=== PATIENT | female | born 1945 | race Caucasian/White ===

== ENCOUNTER → 2016-12-27 | Outpatient (CLI) | payer OTHER, MEDICARE ==
[~2016-12-27] MED LIST: COUMADIN5 MG PO; DIGOXIN0.125 MG PO; FUROSEMIDE40 MG PO; K-TABS10 MEQ PO; LEVO-T125 MCG PO; LISINOPRIL10 MG PO; LOVASTATIN20 MG PO; METOPROLOL TART25 MG PO; NORCO1 TA2 PO; SPIRONOLACTONE25 MG PO
== END ==
LOC: LAB SRH 13:23
DX: E03.9 Hypothyroidism, unspecified (principal)
CPT/HCPCS: 90074; 93140

== ENCOUNTER 2017-03-26 12:47 | Emergency (ER) | payer OTHER, MEDICARE ==
--- NOTE | 2017-03-26 14:27 | DIAGNOSTIC IMAGING REPORT ---
PROCEDURE: XR CHEST 1 VIEW INDICATION: SHORTNESS OF BREATH TECHNIQUE: Portable AP view 02:16 p.m. COMPARISON: Chest 11/15/2016 FINDINGS: New pacemaker in position. No other change in cardiomegaly. Lungs clear. IMPRESSION: 1. No change in cardiomegaly. Lungs clear.
--- NOTE | 2017-03-26 16:00 | ED NURSING NOTES ---
Clinical Report - Nurses [facility] [address] [place] [address] 03/26/2017 12:51 Patient: DELMIS PATIÑO TRIAGE Triage time 13:Mar 26 2017. Acuity: LEVEL 2. Chief Complaint: (pt has [employer] / [facility] in left upper chest, pt of dr caputo- has appointment with dr mejia the 03 of april, while driving in to town pt c/o "getting very hot in the back of my neck and sob" pt denies cp. pt seen at [facility] March 18 for the same). Alert. No acute distress. SEPSIS SCREEN: Sepsis Screen. Negative (no infection suspected/documented). --13:16 Leann Srinivasan R.N. 13:09 03/26/17. BP: 138/83. HR: 72. RR: 19. O2 saturation: 99%. Temp: 98.4 F. Pain level now: 0/10. --13:16 Leann Srinivasan R.N. Weight: 62.1 kg. Height/Length: 60 inches. BMI: 26.7. --13:14 Leann Srinivasan R.N. Medications Coumadin Oral 7.5 mg, last dose 1230 (Mon, Wed, Fri and 5 mg all the other days). Hydrocodone-Acetaminophen Oral (Tablet 5-325 mg) 1 tablet, q 6 hours as needed. Levothyroxine Sodium Oral. Lisinopril Oral 10 mg, daily. Lovastatin Oral 20 mg, at bedtime. Metoprolol Succinate ER Oral. Spironolactone Oral. --13:11 Leann Srinivasan R.N. Allergies Codeine. Definite Moderate(SOB, swelling) Penicillins. Possible (Childhood reaction) --13:11 Leann Srinivasan R.N. History Arrived by private vehicle. Historian: patient. The patient has had difficulty breathing. 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 PAST MEDICAL HX: The patient is post-menopausal. SOCIAL HX: Smoker- current status unknown. Alcohol use; consumes beer occasionally. No drug use. No infectious disease exposure. ABUSE ASSESSMENT: No report of abuse. SELF HARM ASSESSMENT: A self harm assessment was performed. The patient answered "no" to the question "Have you recently felt down, depressed, or hopeless?", "Have you noticed less interest or pleasure in doing things?", "Do you have thoughts of harming or killing yourself?", "Are you here because you tried to hurt yourself?", "Have you ever tried to hurt yourself before today?", "Have you recently had thoughts about harming or killing others?" and "Do you have any dangerous items in your possession?". FALL RISK ASSESSMENT: Fall risk assessment completed. No fall risk identified. NUTRITIONAL RISK ASSESSMENT: The nutritional risk assessment revealed no deficiencies. LEARNING NEEDS ASSESSMENT: The learning needs assessment revealed no barriers. FUNCTIONAL ASSESSMENT: Functional assessment performed: uses cane; wears glasses. SKIN INTEGRITY ASSESSMENT: Skin integrity risk assessment completed. No skin integrity risk identified. --13:16 Leann Srinivasan R.Ankita. PROBLEMS: Cardiomyopathy. Hypotension. Dizziness. Palpitations. Torticollis. Neck Pain. COPD - Chronic Obstructive Pulmonary Disease. Dyspnea. Heart Disease. Dental Pain. Acute Pain. Dental Caries. Hypothyroidism. Hypercholesterolemia. CVA - Cerebrovascular Accident. Hypertension. Congestive Heart Failure. --13:12 Leann Srinivasan R.N. ADDITIONAL SURGERIES: Adenoidectomy. Appendectomy. Tonsillectomy. --13:12 Leann Srinivasan RStewartN. Interventions ID and allergy band on patient. --13:16 Leann Srinivasan R.N. PHYSICAL ASSESSMENT GENERAL / NEURO / PSYCH: Alert. Oriented X 4. Appears in no acute distress. HEENT: Mucous membranes are pink. RESPIRATORY: Respirations not labored. Inspiratory wheezes present (diffuse). CVS: Cardiac rhythm: (paced). Capillary refill less than 2 seconds. GI / : Abdomen soft and nontender. EXTREMITIES: 1+ edema of the right lower extremity involving the foot and ankle; 2+ edema of the left lower extremity involving the foot and ankle. SKIN: Skin is warm and dry. Normal skin turgor. --13:19 Leann Srinivasan R.N. NURSING PROGRESS NOTES Cardiac rhythm: paced rhythm. kitchen and bath designer, pulse oximeter and NIBP monitor placed on patient; synchro assembler- Lead II and V5; monitor alarms on. Patient gowned. Reassurance given. Patient identifiers checked. Call light placed in reach. Side rails up x 1. Bed placed in lowest position. Brakes of bed on. Patient ready for evaluation- chart flagged. --13:19 Leann Srinivasan R.N. EKG time: (:Mar 26 2017). EKG was performed by a tech and shown to the ED physician. --13:19 Leann Srinivasan R.N. 13:15 03/26/2017 Site #1 started via IV in the right antecubital space with an 20g angiocath; one attempt. Blood drawn: rainbow set. Labeled in the presence of the patient and sent to the lab. Saline lock flushed with 10 mL saline. --13:20 Leann Srinivasan R.N. Portable chest x-ray performed. Reassurance given. --14:17 Leann Srinivasan R.N. 14:17 03/26/17. BP: 117/74 taken on the left arm, while lying. HR: 61. RR: 18. O2 saturation: 98% on room air. Pain level now: 0/10. --14:19 Leann Srinivasan R.N. 14:48. ( pt had 12 beat run of cinthia- CONCHITA gan at monitor caught it and showed to MD. pt reports "It's the same feeling I have been having for some time" pt describes as "I get really warm like a hot flash and then it feels like the bottom is falling out" pt also reports sob during the episode. code cart placed outside of room). --15:19 Leann Srinivasan R.N. 15:20 03/26/17. BP: 125/87. HR: 71. Pain level now: 0/10. --15:21 Leann Srinivasan R.N. Call light placed in reach. --15:22 Page-Kuchan, Karyol, R.N. The patient is calm. RESPIRATORY: No respiratory distress. --15:22 Leann Srinivasan R.N. ( pt cont to have runs of vtach, pt moved to room 1 to be visible from nurses station. O2 placed on pt, pt cont to deny pain, is in a paced rhythm with no c/o other than when she has the runs of vtach, then pt will co "flushed" with MD patricia aware). --16:01 Leann Srinivasan R.N. kitchen and bath designer, pulse oximeter and NIBP monitor placed on patient; synchro assembler- Lead II and V5; monitor alarms on. Reassurance given. Patient identifiers checked. Call light placed in reach. Side rails up x 2. Bed placed in lowest position. Brakes of bed on. --16:02 Leann Srinivasan R.N. Cardiac rhythm: (paced with runs of vtach). --16:09 Leann Srinivasan R.N. Patient waiting for transportation and admit bed and (pt to be admitted to [facility], waiting bed assignment call back). ( pt in poc, cont to deny pain "I just get so sob when it happens" pt remains in paced rhythm with runs of vtach. Code cart by bed, pt contacted her sister via phone to notify of her transfer.). --16:57 Leann Srinivasan R.N. 16:57 03/26/17. BP: 124/60. HR: 68. RR: 19. O2 saturation: 99% on nasal cannula at 2 liters/minute. Pain level now: 0/10. --16:58 Leann Srinivasan R.N. DISPOSITION / DISCHARGE Report was given to a nurse via a phone call. Report included patient's care, treatment, medications, reviewed medication reconcilliation, and condition (including any recent changes or anticipated changes). All questions were answered. Report was acknowledged. (report called to feliz Wei RN). ( eta for NWA [id number]). --17:22 Leann Srinivasan R.N. Cardiac rhythm: (paced). Departure time: 1740. The patient was discharged by the physician. She was discharged (feliz Cervantes). She left the Emergency Department via ambulance and on a stretcher. Transferred to [facility]. Summary of care provided to transport team and transfer facility (17:41 Mar 26 2017). Transported via ambulance by nurse, EMS and transport team with monitor, IV, O2 and emergency medications. Report was given to a nurse in person. Report included patient's care, treatment, medications, reviewed medication reconcilliation, and condition (including any recent changes or anticipated changes). All questions were answered. Report was acknowledged and care was transferred. (Mario ARANGO). Patient's personal items include, bagged/tagged, pts sister Jud coming to get pts car. --17:42 Leann Srinivasan R.N. 17:39 03/26/17. BP: 113/85. HR: 65. RR: 18. O2 saturation: 98%. Temp: 98.2 F. Pain level now: 0/10. --17:42 Leann Srinivasan R.N. Locked/Released at 03/26/2017 17:53 by Leann Srinivasan R.N.
--- NOTE | 2017-03-26 16:00 | ED ORDER SUMMARY ---
..... Patient: DELMIS PATIÑO OrderSheet [facility] VisitID: [id number] [place] [address] 71y, F Registration Date/Time: 03/26/2017 ORDER SHEET Weight: 62.1 kg Allergies: Codeine, Penicillins GENERAL ORDERS: Chest 1V Urgent (14:04 03/26/2017 Fernie Haddad) (Ack 14:06 Luicana) (14:13 KPage-Kuclausn R.N.) UA-Culture if indicated Urgent (14:05 03/26/2017 Fernie Haddad) (Ack 14:06 Luciana) (17:52 KPage-Angelan R.N.) Cardiac Panel Stat (14:05 03/26/2017 Fernie Haddad) (Ack 14:06 Luciana) (14:13 KPage-Kuclausn R.N.) BNP Urgent (14:05 03/26/2017 Fernie Haddad) (Ack 14:06 Luciana) (14:13 KPage-Kuchan R.N.) D-Dimer Urgent (14:05 03/26/2017 Fernie Haddad) (Ack 14:06 Luciana) (14:13 KPage-Kuchan R.N.) PT with INR Urgent (16:01 03/26/2017 Fernie Haddad) (Ack 16:15 Luciana) (17:52 KPage-Kuchan R.N.) PTT Urgent (16:01 03/26/2017 Fernie Haddad) (Ack 16:15 Luciana) (17:52 KPage-Kuclausn R.N.) TSH Urgent (16:09 03/26/2017 Fernie Haddad) (Ack 16:15 Luciana) (17:52 KPage-Kuchan R.N.) MEDICATION ORDERS: IV FLUIDS: IV Saline Lock (14:05 03/26/2017 Fernie Haddad) (14:14 KPage-Kuchan R.N.) ORDER SHEET NOTES: [Electronically signed by Leann Srinivasan R.N. (17:53 03/26/2017)] [Electronically signed by Alli Mccormick Dr. (17:57 03/26/2017)] [Electronically locked/signed by Leann Srinivasan R.N. (17:53 03/26/2017)]
--- NOTE | 2017-03-26 16:00 | ED CLINICAL REPORT ---
Clinical Report - Physicians/Mid Levels [facility] [address] [place] [address] 03/26/2017 12:51 Patient: DELMIS PATIÑO Time Seen: 13:26; initial patient contact. Arrived- By private vehicle. Historian- patient. HISTORY OF PRESENT ILLNESS Chief Complaint: DIZZINESS and WEAKNESS. Described as feeling light-headed, faint and weak all over. Severity described as moderate at its maximum. When seen in the E.D., severity described as moderate. Modifying factors- relieved by nothing. Not worsened by anything. This started about 2 days ago and is still present and worsening. It was abrupt in onset and has been intermittent. The patient has had nausea. No vomiting. Similar symptoms previously: Many times. Recent medical care: The patient was seen recently at another facility in the emergency department. ( Complete cardiac W/U 1 week ago at [facility], normal including pacer evaluation. D/C'd.). REVIEW OF SYSTEMS The patient has had difficulty breathing, weakness, and palpitations. No difficulty walking. No fainting episodes, chest pain or diarrhea. All systems otherwise negative, except as recorded above. PAST HISTORY ( Cardiomyopathy. Hypotension. Dizziness. Palpitations. Torticollis. Neck Pain. COPD - Chronic Obstructive Pulmonary Disease. Dyspnea. Heart Disease. Dental Pain. Acute Pain. Dental Caries. Hypothyroidism. Hypercholesterolemia. CVA - Cerebrovascular Accident. Hypertension. Congestive Heart Failure. ADDITIONAL SURGERIES: Adenoidectomy. Appendectomy. Tonsillectomy.). SOCIAL HISTORY Smoker - current status unknown. Occasional alcohol use. No drug use. ADDITIONAL NOTES The nursing notes have been reviewed. PHYSICAL EXAM Vital Signs: 03/26/2017 13:09 BP: 138/83. HR: 72. RR: 19. O2 saturation: 99%. Temp: 98.4 F. Pain level now: 0/10. Have been reviewed as normal. Appearance: Alert. Anxious. ENT: Normal ENT inspection. Neck: Normal inspection. CVS: Normal heart rate and rhythm. Heart sounds normal. Respiratory: No respiratory distress. Breath sounds normal. Abdomen: Soft and nontender. No organomegaly. Skin: Skin warm and dry. Normal skin color. Extremities: Bilateral 2+ non-pitting edema of the lower extremities involving both lower legs. No calf tenderness. Neuro: Alert. Oriented X 3. Mood/affect normal. LABS, X-RAYS, AND EKG EKG: EKG time: (1324). Ventricular paced rhythm. Normal P waves. Normal KRIS. Normal ST and T waves. Prolonged QTc (503). Changes present when compared to prior EKG. (11/15/16 No pacer, NSR 76 w/ LBBB). The study has been interpreted contemporaneously by me. The study has been independently viewed by me. The EKG appears to be a good tracing. Interpretation time: 1324. Chest X-ray: Pacemaker present. (1. No change in cardiomegaly. Lungs clear.). Views: AP. A comparison with prior films reveals that the findings are new (Pacemaker). Laboratory Tests: CBC w Diff: (KYLEE: 03/26/2017 13:16) ( [facility] 03/26/2017 14:12) Final results Test Result Flag Units (Reference) WHITE BLOOD COUNT 7.5 K/uL (4.5-11.5) RED BLOOD COUNT 4.56 M/uL (4.00-5.20) HEMOGLOBIN 14.1 gm/dL (12.0-16.0) HEMATOCRIT 42.9 % (36.0-46.0) MEAN CELL VOLUME 94 fL (80-100) MEAN CORPUSCULAR HGB 31 pg (26-34) MEAN CORPUSCULAR HGB CONC 33 g/dL (31-37) RED CELL DISTRIBUTION WIDTH 13.8 % (11.6-14.8) PLATELET COUNT 181 K/uL (150-400) NEUTROPHIL % 64.0 % (50-75) LYMPH % 28.0 % (25-40) MONO % 7.6 % (3-14) EOSINOPHIL % 0 % (0-4) BASOPHIL % 0.4 % (0-2) PT with INR: (KYLEE: 03/26/2017 13:16) ( [facility] 03/26/2017 16:13) Final results Test Result Flag Units (Reference) INR 2.0 H (0.8-1.2) Low Intensity Therapy: INR 1.5-2.0 PT range 18.5-23.1Mod.Intensity Therapy: INR 2.0-3.0 PT range 23.1-31.5High Intensity Therapy: INR 2.5-3.5 PT range 27.4-35.5High Intensity Therapy 2: INR 3.0-4.0 PT range 31.5-39.3 APTT 38 H SECONDS (24-34) [id number]: (KYLEE: 03/26/2017 13:16) ( [facility] 03/26/2017 14:27) Final results Test Result Flag Units (Reference) D-DIMER QUANTITATIVE < 0.27 L ug/mLFEU (0.27-0.52) The primary value of this quantitative assay relates toits negative predictive value (i.e. exclusion) of pulmonaryembolism/deep vein thrombosis/DIC.Elevated levels of d-dimer may also occur with:, age, cancer, inflammation, liver disease,post-op, infection, hematoma, coronary disease, peripheralarteriopathy, bleeding disorders and thrombolytic treatment.Results should be correlated with other clinical andradiological data.Testing Methodology: Latex Immunoassay TSH: (KYLEE: 03/26/2017 13:16) ( [facility] 03/26/2017 17:24) Final results Test Result Flag Units (Reference) THYROID STIMULATING HORMONE 1.453 uIU/mL (0.30-3.74) BNP: (KYLEE: 03/26/2017 13:16) ( [facility] 03/26/2017 14:44) Final results Test Result Flag Units (Reference) B-TYPE NATRIURETIC PEPTIDE 648 H pg/ml (5-100) CHEM 13 PANEL: (KYLEE: 03/26/2017 13:16) ( [facility] 03/26/2017 14:30) Final results Test Result Flag Units (Reference) GLUCOSE 103 mg/dL (70-110) BUN 22 H mg/dL (7-18) CREATININE 1.0 mg/dL (0.6-1.3) Estimated GFR 58.09 mL/min Estimated GFR- >60 mL/min Note: Persistent reduction over 3 months in eGFR<60 mL/min/1.73 m2 defines CKD. Patients with eGFR values>=60 mL/min/1.73 m2 may also have CKD if evidence ofpersistent proteinuria. Additional information may be foundat www.kidney.org. SODIUM 138 mmol/L (136-145) POTASSIUM 4.1 mmol/L (3.5-5.1) CHLORIDE 102 mmol/L (98-107) CARBON DIOXIDE 26 mmol/L (21-32) CALCIUM 9.4 mg/dL (8.5-10.1) TOTAL PROTEIN 7.9 g/dL (6.4-8.2) ALBUMIN 3.9 g/dL (3.3-5.0) BILIRUBIN, TOTAL 0.4 mg/dL (0.0-1.0) ALKALINE PHOSPHATASE 65 U/L (46-116) AST (SGOT) 26 U/L (15-37) ALT (SGPT) 23 U/L (12-78) MAGNESIUM 1.9 mg/dL (1.8-2.4) CPK 91 U/L (24-260) TROPONIN I 0.11 ng/mL (0.00-1.5) TROPONIN REFERENCE RANGE:<0.1 NEGATIVE0.1-1.5 INDETERMINANT>1.5 POSITIVE . PROGRESS AND PROCEDURES Discussed case with hospitalist, (call returned 15:45 Dr. Joseph at [facility], will accept pt to telemetry). Reviewed test results and need for additional work-up. Consult obtained from cardiology. call returned 15:15 Dr. Sanders @ [facility], will consult on pt. Disposition: Benefits, risks and alternatives to transfer explained to patient. Transferred to [facility]. Condition: stable. CLINICAL IMPRESSION Paroxysmal ventricular tachycardia. (Electronically signed by Alli Mccormick Dr. 03/26/2017 17:57)
--- NOTE | 2017-03-26 16:00 | ED ORDER SUMMARY ---
..... Patient: DELMIS PATIÑO OrderSheet [facility] VisitID: [id number] [place] [address] 71y, F Registration Date/Time: 03/26/2017 ORDER SHEET Weight: 62.1 kg Allergies: Codeine, Penicillins GENERAL ORDERS: Chest 1V Urgent (14:04 03/26/2017 Fernie Haddad) (Ack 14:06 Luciana) (14:13 KPage-Kuclausn R.N.) UA-Culture if indicated Urgent (14:05 03/26/2017 Fernie Haddad) (Ack 14:06 Luciana) (17:52 KPage-Angelan R.N.) Cardiac Panel Stat (14:05 03/26/2017 Fernie Haddad) (Ack 14:06 Luciana) (14:13 KPage-Kuclausn R.N.) BNP Urgent (14:05 03/26/2017 Fernie Haddad) (Ack 14:06 Luciana) (14:13 KPage-Kuchan R.N.) D-Dimer Urgent (14:05 03/26/2017 Fernie Haddad) (Ack 14:06 Luciana) (14:13 KPage-Kuchan R.N.) PT with INR Urgent (16:01 03/26/2017 Fernie Haddad) (Ack 16:15 Luciana) (17:52 KPage-Kuchan R.N.) PTT Urgent (16:01 03/26/2017 Fernie Haddad) (Ack 16:15 Luciana) (17:52 KPage-Kuclausn R.N.) TSH Urgent (16:09 03/26/2017 Fernie Haddad) (Ack 16:15 Luciana) (17:52 KPage-Kuchan R.N.) MEDICATION ORDERS: IV FLUIDS: IV Saline Lock (14:05 03/26/2017 Fernie Haddad) (14:14 KPage-Kuchan R.N.) ORDER SHEET NOTES: [Electronically signed by Leann Srinivasan R.N. (17:53 03/26/2017)] [Electronically signed by Alli Mccormick Dr. (17:57 03/26/2017)] [Electronically locked/signed by Leann Srinivasan R.N. (17:53 03/26/2017)]
--- NOTE | 2017-03-26 16:00 | ED NURSING NOTES ---
Clinical Report - Nurses [facility] [address] [place] [address] 03/26/2017 12:51 Patient: DELMIS PATIÑO TRIAGE Triage time 13:Mar 26 2017. Acuity: LEVEL 2. Chief Complaint: (pt has Digitel / [facility] in left upper chest, pt of dr caputo- has appointment with dr mejia the 03 of april, while driving in to town pt c/o "getting very hot in the back of my neck and sob" pt denies cp. pt seen at [facility] March 18 for the same). Alert. No acute distress. SEPSIS SCREEN: Sepsis Screen. Negative (no infection suspected/documented). --13:16 Leann Srinivasan R.N. 13:09 03/26/17. BP: 138/83. HR: 72. RR: 19. O2 saturation: 99%. Temp: 98.4 F. Pain level now: 0/10. --13:16 Leann Srinivasan R.N. Weight: 62.1 kg. Height/Length: 60 inches. BMI: 26.7. --13:14 Leann Srinivasan R.N. Medications Coumadin Oral 7.5 mg, last dose 1230 (Mon, Wed, Fri and 5 mg all the other days). Hydrocodone-Acetaminophen Oral (Tablet 5-325 mg) 1 tablet, q 6 hours as needed. Levothyroxine Sodium Oral. Lisinopril Oral 10 mg, daily. Lovastatin Oral 20 mg, at bedtime. Metoprolol Succinate ER Oral. Spironolactone Oral. --13:11 Leann Srinivasan R.N. Allergies Codeine. Definite Moderate(SOB, swelling) Penicillins. Possible (Childhood reaction) --13:11 Leann Srinivasan R.N. History Arrived by private vehicle. Historian: patient. The patient has had difficulty breathing. 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 PAST MEDICAL HX: The patient is post-menopausal. SOCIAL HX: Smoker- current status unknown. Alcohol use; consumes beer occasionally. No drug use. No infectious disease exposure. ABUSE ASSESSMENT: No report of abuse. SELF HARM ASSESSMENT: A self harm assessment was performed. The patient answered "no" to the question "Have you recently felt down, depressed, or hopeless?", "Have you noticed less interest or pleasure in doing things?", "Do you have thoughts of harming or killing yourself?", "Are you here because you tried to hurt yourself?", "Have you ever tried to hurt yourself before today?", "Have you recently had thoughts about harming or killing others?" and "Do you have any dangerous items in your possession?". FALL RISK ASSESSMENT: Fall risk assessment completed. No fall risk identified. NUTRITIONAL RISK ASSESSMENT: The nutritional risk assessment revealed no deficiencies. LEARNING NEEDS ASSESSMENT: The learning needs assessment revealed no barriers. FUNCTIONAL ASSESSMENT: Functional assessment performed: uses cane; wears glasses. SKIN INTEGRITY ASSESSMENT: Skin integrity risk assessment completed. No skin integrity risk identified. --13:16 Leann Srinivasan R.Ankita. PROBLEMS: Cardiomyopathy. Hypotension. Dizziness. Palpitations. Torticollis. Neck Pain. COPD - Chronic Obstructive Pulmonary Disease. Dyspnea. Heart Disease. Dental Pain. Acute Pain. Dental Caries. Hypothyroidism. Hypercholesterolemia. CVA - Cerebrovascular Accident. Hypertension. Congestive Heart Failure. --13:12 Leann Srinivasan R.N. ADDITIONAL SURGERIES: Adenoidectomy. Appendectomy. Tonsillectomy. --13:12 Leann Srinivasan RStewatrN. Interventions ID and allergy band on patient. --13:16 Leann Srinivasan R.N. PHYSICAL ASSESSMENT GENERAL / NEURO / PSYCH: Alert. Oriented X 4. Appears in no acute distress. HEENT: Mucous membranes are pink. RESPIRATORY: Respirations not labored. Inspiratory wheezes present (diffuse). CVS: Cardiac rhythm: (paced). Capillary refill less than 2 seconds. GI / : Abdomen soft and nontender. EXTREMITIES: 1+ edema of the right lower extremity involving the foot and ankle; 2+ edema of the left lower extremity involving the foot and ankle. SKIN: Skin is warm and dry. Normal skin turgor. --13:19 Leann Srinivasan R.N. NURSING PROGRESS NOTES Cardiac rhythm: paced rhythm. communications and signals supervisor, pulse oximeter and NIBP monitor placed on patient; cardiac tech- Lead II and V5; monitor alarms on. Patient gowned. Reassurance given. Patient identifiers checked. Call light placed in reach. Side rails up x 1. Bed placed in lowest position. Brakes of bed on. Patient ready for evaluation- chart flagged. --13:19 Leann Srinivasan R.N. EKG time: (:Mar 26 2017). EKG was performed by a tech and shown to the ED physician. --13:19 Leann Srinivasan R.N. 13:15 03/26/2017 Site #1 started via IV in the right antecubital space with an 20g angiocath; one attempt. Blood drawn: rainbow set. Labeled in the presence of the patient and sent to the lab. Saline lock flushed with 10 mL saline. --13:20 Leann Srinivasan R.N. Portable chest x-ray performed. Reassurance given. --14:17 Leann Srinivasan R.N. 14:17 03/26/17. BP: 117/74 taken on the left arm, while lying. HR: 61. RR: 18. O2 saturation: 98% on room air. Pain level now: 0/10. --14:19 Leann Srinivasan R.N. 14:48. ( pt had 12 beat run of cinthia- CONCHITA gan at monitor caught it and showed to MD. pt reports "It's the same feeling I have been having for some time" pt describes as "I get really warm like a hot flash and then it feels like the bottom is falling out" pt also reports sob during the episode. code cart placed outside of room). --15:19 Leann Srinivasan R.N. 15:20 03/26/17. BP: 125/87. HR: 71. Pain level now: 0/10. --15:21 Leann Srinivasan R.N. Call light placed in reach. --15:22 Page-Kuchan, Karyol, R.N. The patient is calm. RESPIRATORY: No respiratory distress. --15:22 Leann Srinivasan R.N. ( pt cont to have runs of vtach, pt moved to room 1 to be visible from nurses station. O2 placed on pt, pt cont to deny pain, is in a paced rhythm with no c/o other than when she has the runs of vtach, then pt will co "flushed" with MD patricia aware). --16:01 Leann Srinivasan R.N. communications and signals supervisor, pulse oximeter and NIBP monitor placed on patient; cardiac tech- Lead II and V5; monitor alarms on. Reassurance given. Patient identifiers checked. Call light placed in reach. Side rails up x 2. Bed placed in lowest position. Brakes of bed on. --16:02 Leann Srinivasan R.N. Cardiac rhythm: (paced with runs of vtach). --16:09 Leann Srinivasan R.N. Patient waiting for transportation and admit bed and (pt to be admitted to [facility], waiting bed assignment call back). ( pt in poc, cont to deny pain "I just get so sob when it happens" pt remains in paced rhythm with runs of vtach. Code cart by bed, pt contacted her sister via phone to notify of her transfer.). --16:57 Leann Srinivasan R.N. 16:57 03/26/17. BP: 124/60. HR: 68. RR: 19. O2 saturation: 99% on nasal cannula at 2 liters/minute. Pain level now: 0/10. --16:58 Leann Srinivasan R.N. DISPOSITION / DISCHARGE Report was given to a nurse via a phone call. Report included patient's care, treatment, medications, reviewed medication reconcilliation, and condition (including any recent changes or anticipated changes). All questions were answered. Report was acknowledged. (report called to feliz Wei RN). ( eta for [place] [id number]). --17:22 Leann Srinivasan R.N. Cardiac rhythm: (paced). Departure time: 1740. The patient was discharged by the physician. She was discharged (feliz Cervantes). She left the Emergency Department via ambulance and on a stretcher. Transferred to [facility]. Summary of care provided to transport team and transfer facility (17:41 Mar 26 2017). Transported via ambulance by nurse, EMS and transport team with monitor, IV, O2 and emergency medications. Report was given to a nurse in person. Report included patient's care, treatment, medications, reviewed medication reconcilliation, and condition (including any recent changes or anticipated changes). All questions were answered. Report was acknowledged and care was transferred. (Mario ARANGO). Patient's personal items include, bagged/tagged, pts sister Jud coming to get pts car. --17:42 Leann Srinivasan R.N. 17:39 03/26/17. BP: 113/85. HR: 65. RR: 18. O2 saturation: 98%. Temp: 98.2 F. Pain level now: 0/10. --17:42 Leann Srinivasan R.N. Locked/Released at 03/26/2017 17:53 by Leann Srinivasan R.N.
--- NOTE | 2017-03-26 16:00 | ED CLINICAL REPORT ---
Clinical Report - Physicians/Mid Levels [facility] [address] [place] [address] 03/26/2017 12:51 Patient: DELMIS PATIÑO Time Seen: 13:26; initial patient contact. Arrived- By private vehicle. Historian- patient. HISTORY OF PRESENT ILLNESS Chief Complaint: DIZZINESS and WEAKNESS. Described as feeling light-headed, faint and weak all over. Severity described as moderate at its maximum. When seen in the E.D., severity described as moderate. Modifying factors- relieved by nothing. Not worsened by anything. This started about 2 days ago and is still present and worsening. It was abrupt in onset and has been intermittent. The patient has had nausea. No vomiting. Similar symptoms previously: Many times. Recent medical care: The patient was seen recently at another facility in the emergency department. ( Complete cardiac W/U 1 week ago at [facility], normal including pacer evaluation. D/C'd.). REVIEW OF SYSTEMS The patient has had difficulty breathing, weakness, and palpitations. No difficulty walking. No fainting episodes, chest pain or diarrhea. All systems otherwise negative, except as recorded above. PAST HISTORY ( Cardiomyopathy. Hypotension. Dizziness. Palpitations. Torticollis. Neck Pain. COPD - Chronic Obstructive Pulmonary Disease. Dyspnea. Heart Disease. Dental Pain. Acute Pain. Dental Caries. Hypothyroidism. Hypercholesterolemia. CVA - Cerebrovascular Accident. Hypertension. Congestive Heart Failure. ADDITIONAL SURGERIES: Adenoidectomy. Appendectomy. Tonsillectomy.). SOCIAL HISTORY Smoker - current status unknown. Occasional alcohol use. No drug use. ADDITIONAL NOTES The nursing notes have been reviewed. PHYSICAL EXAM Vital Signs: 03/26/2017 13:09 BP: 138/83. HR: 72. RR: 19. O2 saturation: 99%. Temp: 98.4 F. Pain level now: 0/10. Have been reviewed as normal. Appearance: Alert. Anxious. ENT: Normal ENT inspection. Neck: Normal inspection. CVS: Normal heart rate and rhythm. Heart sounds normal. Respiratory: No respiratory distress. Breath sounds normal. Abdomen: Soft and nontender. No organomegaly. Skin: Skin warm and dry. Normal skin color. Extremities: Bilateral 2+ non-pitting edema of the lower extremities involving both lower legs. No calf tenderness. Neuro: Alert. Oriented X 3. Mood/affect normal. LABS, X-RAYS, AND EKG EKG: EKG time: (1324). Ventricular paced rhythm. Normal P waves. Normal KRIS. Normal ST and T waves. Prolonged QTc (503). Changes present when compared to prior EKG. (11/15/16 No pacer, NSR 76 w/ LBBB). The study has been interpreted contemporaneously by me. The study has been independently viewed by me. The EKG appears to be a good tracing. Interpretation time: 1324. Chest X-ray: Pacemaker present. (1. No change in cardiomegaly. Lungs clear.). Views: AP. A comparison with prior films reveals that the findings are new (Pacemaker). Laboratory Tests: CBC w Diff: (KYLEE: 03/26/2017 13:16) ( [facility] 03/26/2017 14:12) Final results Test Result Flag Units (Reference) WHITE BLOOD COUNT 7.5 K/uL (4.5-11.5) RED BLOOD COUNT 4.56 M/uL (4.00-5.20) HEMOGLOBIN 14.1 gm/dL (12.0-16.0) HEMATOCRIT 42.9 % (36.0-46.0) MEAN CELL VOLUME 94 fL (80-100) MEAN CORPUSCULAR HGB 31 pg (26-34) MEAN CORPUSCULAR HGB CONC 33 g/dL (31-37) RED CELL DISTRIBUTION WIDTH 13.8 % (11.6-14.8) PLATELET COUNT 181 K/uL (150-400) NEUTROPHIL % 64.0 % (50-75) LYMPH % 28.0 % (25-40) MONO % 7.6 % (3-14) EOSINOPHIL % 0 % (0-4) BASOPHIL % 0.4 % (0-2) PT with INR: (KYLEE: 03/26/2017 13:16) ( [facility] 03/26/2017 16:13) Final results Test Result Flag Units (Reference) INR 2.0 H (0.8-1.2) Low Intensity Therapy: INR 1.5-2.0 PT range 18.5-23.1Mod.Intensity Therapy: INR 2.0-3.0 PT range 23.1-31.5High Intensity Therapy: INR 2.5-3.5 PT range 27.4-35.5High Intensity Therapy 2: INR 3.0-4.0 PT range 31.5-39.3 APTT 38 H SECONDS (24-34) [id number]: (KYLEE: 03/26/2017 13:16) ( [facility] 03/26/2017 14:27) Final results Test Result Flag Units (Reference) D-DIMER QUANTITATIVE < 0.27 L ug/mLFEU (0.27-0.52) The primary value of this quantitative assay relates toits negative predictive value (i.e. exclusion) of pulmonaryembolism/deep vein thrombosis/DIC.Elevated levels of d-dimer may also occur with:, age, cancer, inflammation, liver disease,post-op, infection, hematoma, coronary disease, peripheralarteriopathy, bleeding disorders and thrombolytic treatment.Results should be correlated with other clinical andradiological data.Testing Methodology: Latex Immunoassay TSH: (KYLEE: 03/26/2017 13:16) ( [facility] 03/26/2017 17:24) Final results Test Result Flag Units (Reference) THYROID STIMULATING HORMONE 1.453 uIU/mL (0.30-3.74) BNP: (KYLEE: 03/26/2017 13:16) ( [facility] 03/26/2017 14:44) Final results Test Result Flag Units (Reference) B-TYPE NATRIURETIC PEPTIDE 648 H pg/ml (5-100) CHEM 13 PANEL: (KYLEE: 03/26/2017 13:16) ( [facility] 03/26/2017 14:30) Final results Test Result Flag Units (Reference) GLUCOSE 103 mg/dL (70-110) BUN 22 H mg/dL (7-18) CREATININE 1.0 mg/dL (0.6-1.3) Estimated GFR 58.09 mL/min Estimated GFR- >60 mL/min Note: Persistent reduction over 3 months in eGFR<60 mL/min/1.73 m2 defines CKD. Patients with eGFR values>=60 mL/min/1.73 m2 may also have CKD if evidence ofpersistent proteinuria. Additional information may be foundat www.kidney.org. SODIUM 138 mmol/L (136-145) POTASSIUM 4.1 mmol/L (3.5-5.1) CHLORIDE 102 mmol/L (98-107) CARBON DIOXIDE 26 mmol/L (21-32) CALCIUM 9.4 mg/dL (8.5-10.1) TOTAL PROTEIN 7.9 g/dL (6.4-8.2) ALBUMIN 3.9 g/dL (3.3-5.0) BILIRUBIN, TOTAL 0.4 mg/dL (0.0-1.0) ALKALINE PHOSPHATASE 65 U/L (46-116) AST (SGOT) 26 U/L (15-37) ALT (SGPT) 23 U/L (12-78) MAGNESIUM 1.9 mg/dL (1.8-2.4) CPK 91 U/L (24-260) TROPONIN I 0.11 ng/mL (0.00-1.5) TROPONIN REFERENCE RANGE:<0.1 NEGATIVE0.1-1.5 INDETERMINANT>1.5 POSITIVE . PROGRESS AND PROCEDURES Discussed case with hospitalist, (call returned 15:45 Dr. Joseph at [facility], will accept pt to telemetry). Reviewed test results and need for additional work-up. Consult obtained from cardiology. call returned 15:15 Dr. Sanders @ [facility], will consult on pt. Disposition: Benefits, risks and alternatives to transfer explained to patient. Transferred to [facility]. Condition: stable. CLINICAL IMPRESSION Paroxysmal ventricular tachycardia. (Electronically signed by Alli Mccormick Dr. 03/26/2017 17:57)
--- NOTE | 2017-03-26 17:58 | ED DISCHARGE INSTRUCTIONS ---
Patient: DELMIS PATIÑO General Instructions [facility] VisitID: [id number] [address] [place] [address] 71y, F Registration Date/Time: 03/26/2017 Paroxysmal ventricular tachycardia. (Electronically signed by Alli Mccormick Dr. 03/26/2017 17:57)
--- NOTE | 2017-03-26 17:58 | ED DISCHARGE INSTRUCTIONS ---
Patient: DELMIS PATIÑO General Instructions [facility] VisitID: [id number] [address] [place] [address] 71y, F Registration Date/Time: 03/26/2017 Paroxysmal ventricular tachycardia. (Electronically signed by Alli Mccormick Dr. 03/26/2017 17:57)
--- NOTE | 2017-03-26 17:58 | ED MED RECONCILIATION SUMMARY ---
Patient: DELMIS PATIÑO Medication Reconciliation Report [facility] VisitID: [id number] [address] [place] [address] 71y, F Registration Date/Time: 03/26/2017 Weight: 62.1 kg Height/Length: 60 in. BMI: 26.7 ALLERGIES: Codeine, Penicillins The patient's Home Medications are listed below: THE FOLLOWING MEDICATIONS NEED TO BE RECONCILED: Coumadin Oral 7.5 mg, last dose: 1230, Mon, Wed, Fri and 5 mg all the other days Hydrocodone-Acetaminophen Oral (5-325 mg) 1 tablet, q 6 hours Levothyroxine Sodium Oral Lisinopril Oral 10 mg, daily Lovastatin Oral 20 mg, at bedtime Metoprolol Succinate ER Oral Spironolactone Oral The source(s) of the original Home Medication information: Not obtained. The following Medications were given to the patient in the Emergency Department: None. The following Medications were prescribed to the patient: None.
--- NOTE | 2017-03-26 17:58 | ED MAR SUMMARY ---
..... Medication Administration Record [facility] [address] [place], [place] [id number] Patient: DELMIS PATIÑO Visit ID: [id number] 71y, F Weight: 62.1 kg Height/Length: 60 in BMI: 26.7 ALLERGIES: Codeine, Penicillins
--- NOTE | 2017-03-26 17:58 | ED MED RECONCILIATION SUMMARY ---
Patient: DELMIS PATIÑO Medication Reconciliation Report [facility] VisitID: [id number] [address] [place] [address] 71y, F Registration Date/Time: 03/26/2017 Weight: 62.1 kg Height/Length: 60 in. BMI: 26.7 ALLERGIES: Codeine, Penicillins The patient's Home Medications are listed below: THE FOLLOWING MEDICATIONS NEED TO BE RECONCILED: Coumadin Oral 7.5 mg, last dose: 1230, Mon, Wed, Fri and 5 mg all the other days Hydrocodone-Acetaminophen Oral (5-325 mg) 1 tablet, q 6 hours Levothyroxine Sodium Oral Lisinopril Oral 10 mg, daily Lovastatin Oral 20 mg, at bedtime Metoprolol Succinate ER Oral Spironolactone Oral The source(s) of the original Home Medication information: Not obtained. The following Medications were given to the patient in the Emergency Department: None. The following Medications were prescribed to the patient: None.
--- NOTE | 2017-03-26 17:58 | ED MAR SUMMARY ---
..... Medication Administration Record [facility] [address] [place], [place] [id number] Patient: DELMIS PATIÑO Visit ID: [id number] 71y, F Weight: 62.1 kg Height/Length: 60 in BMI: 26.7 ALLERGIES: Codeine, Penicillins
== END 2017-03-26 17:42 | disposition short-term general hospital (02) ==
LOC: ED SRH 12:47
DX: I47.2 Ventricular tachycardia (principal); J44.9 Chronic obstructive pulmonary disease, unspecified; I10 Essential (primary) hypertension; Z79.899 Other long term (current) drug therapy; E03.9 Hypothyroidism, unspecified
CPT/HCPCS: 90100; 90616; 91320; 91556; 92610; 92720; 93140; 94001; 94060; 95059